=== PATIENT | female | born 1995 | race Two or more races ===

== ENCOUNTER 2017-01-16 21:01 | Emergency (ER) | payer BC ==
--- NOTE | 2017-01-16 22:09 | RAD ---
Indication: Chest pain. 2 views of the chest demonstrates no mediastinal shift. Heart is of normal size and configuration. Lung reilly are clear. IMPRESSION: No active cardiopulmonary disease is noted.
[2017-01-16 22:33] LABS: Hematocrit 37 % (35-47); Hemoglobin 12.5 g/dl (12.0-16.0); Mean Corpuscular HGB Conc 34 g/dl (31-36); Mean Corpuscular Hemoglobin 31 pg (27-31); Mean Corpuscular Volume 89 fL (80-97); Mean Platelet Volume 7 um3 (7.4-10.4); Red Blood Count 4.08 10^6/ul (4.0-5.4); Red Cell Distribution Width 13 % (10.5-15); White Blood Count 5.3 10^3/ul (3.5-10.8)
[2017-01-16 23:03] LABS: ALT 9 U/L (7-52); AST 13 U/L (13-39); Albumin 4.5 g/dL (3.2-5.2); Alkaline Phosphatase 23 U/L (34-104); Anion Gap 7 mmol/L (2-11); BUN/Creatinine Ratio 18.2 (8-20); Blood Urea Nitrogen 12 mg/dL (6-24); CO2 Carbon Dioxide 27 mmol/L (22-32); Calcium 9.8 mg/dL (8.6-10.3); Chloride 102 mmol/L (101-111); EGFR African American 145.4 (>60); EGFR Non-African American 113.1 (>60); Globulin 3.3 g/dL (2-4); Glucose 100 mg/dL (70-100); Potassium 3.5 mmol/L (3.5-5.0); Sodium 136 mmol/L (133-145); Total Protein 7.8 g/dL (6.4-8.9)
[2017-01-16] MEDS ORDERED: NS 0.9% 1000 ML* 1,000 ML IV ONE (23:32)
[2017-01-17] MEDS ORDERED: Iohexol 350* (CONTRAST) 500 ML MDV IV ONE (00:52)
[2017-01-17] MEDS ORDERED: Ibuprofen TAB* 600 MG PO ONE (02:10)
[2017-01-17 03:43] VITALS: BP 90/50
--- NOTE | 2017-01-17 04:56 | ED ---
Khurram Mendoza Rebecca, scribed for JanethingridAvinash on 01/16/17 at 2328 . HPI Chest Pain - HPI Summary HPI Summary: Pt is a 21 y/o F who presents to ED referred from [facility] c/o CP. Pain began this morning at 0630 and is located in the midsternal region. Pain is currently not present, ranked 0/10. Sx aggravated by standing up and deep breaths, alleviated by nothing. Denies SOB. Pt is on oral contraceptives (ocella ). - History of Current Complaint Chief Complaint: EDChestPainROMI Time Seen by Provider: 01/16/17 23:14 Hx Obtained From: Patient Onset/Duration: Started Hours Ago, Resolved Time of Onset: 06:30 Current Severity: None Pain Intensity: 0 Pain Scale Used: 0-10 Numeric Chest Pain Location: Mid Sternal Aggravating Factor(s): Deep Breaths, Other: - Standing Alleviating Factor(s): Nothing Associated Signs and Symptoms: Positive: Negative. Negative: Shortness of Breath - Allergy/Home Medications Allergies/Adverse Reactions: Allergies Allergy/AdvReac Type Severity Reaction Status Date / Time No Known Allergies Allergy Verified 01/16/17 21:16 PMH/Surg Hx/FS Hx/Imm Hx Endocrine/Hematology History: Reports: Hx Thyroid Disease - Hypothyroid Cardiovascular History: Denies: Hx Coronary Artery Disease, Hx Hypertension Infectious Disease History: No Infectious Disease History: Denies: Traveled Outside the [place] in Last 30 Days - Family History Known Family History: Negative: Cardiac Disease, Hypertension, Diabetes - Social History Occupation: Student Alcohol Use: None Substance Use Type: Reports: Marijuana Smoking Status (MU): Never Smoked Tobacco Review of Systems Negative: Fever Positive: Chest Pain Negative: Shortness Of Breath All Other Systems Reviewed And Are Negative: Yes Physical Exam - Summary Physical Exam Summary: Appearance: Well appearing, no pain distress Skin: warm, dry, reflects adequate perfusion Head/face: normal Eyes: EOMI, RADHA ENT: normal Neck: supple, nontender Respiratory: CTA, breath sounds present Cardiovascular: RRR, pulses symmetrical Abdomen: nontender, soft Bowel: present Musculoskeletal: normal, strength/ROM intact Neuro: normal, sensory motor intact, A&Ox3 Triage Information Reviewed: Yes Vital Signs On Initial Exam: Initial Vitals Temp Pulse Resp BP Pulse Ox 97.8 F 80 14 111/72 98 08/30/17 21:18 01/16/17 21:18 01/16/17 21:18 01/16/17 21:18 01/16/17 21:18 Vital Signs Reviewed: Yes Diagnostics - Vital Signs Vital Signs Temp Pulse Resp BP Pulse Ox 01/16/17 23:00 98.7 F 70 16 100/58 100 01/16/17 21:18 97.8 F 80 14 111/72 98 - Laboratory Lab Results: Lab Results 01/16/17 01/16/17 01/16/17 Range/Units 22:07 22:07 22:07 WBC 5.3 (3.5-10.8) 10^3/ul RBC 4.08 (4.0-5.4) 10^6/ul Hgb 12.5 (12.0-16.0) g/dl Hct 37 (35-47) % MCV 89 (80-97) fL MCH 31 (27-31) pg MCHC 34 (31-36) g/dl RDW 13 (10.5-15) % Plt Count 270 (150-450) 10^3/ul MPV 7 L (7.4-10.4) um3 Neut % (Auto) 46.8 (38-83) % Lymph % (Auto) 43.4 (25-47) % [place] % (Auto) 8.0 (1-9) % Eos % (Auto) 1.3 (0-6) % Baso % (Auto) 0.5 (0-2) % Absolute Neuts (auto) 2.5 (1.5-7.7) 10^3/ul Absolute Lymphs (auto) 2.3 (1.0-4.8) 10^3/ul Absolute Monos (auto) 0.4 (0-0.8) 10^3/ul Absolute Eos (auto) 0.1 (0-0.6) 10^3/ul Absolute Basos (auto) 0 (0-0.2) 10^3/ul Absolute Nucleated RBC 0 10^3/ul Nucleated RBC % 0.1 INR (Anticoag Therapy) 0.92 (0.89-1.11) APTT 29.5 (26.0-36.3) seconds D-Dimer, Quantitative < 200 (Less Than 230) ng/mL Sodium (133-145) mmol/L Potassium (3.5-5.0) mmol/L Chloride (101-111) mmol/L Carbon Dioxide (22-32) mmol/L Anion Gap (2-11) mmol/L BUN (6-24) mg/dL Creatinine (0.51-0.95) mg/dL Est GFR ( Amer) (>60) Est GFR (Non-Af Amer) (>60) BUN/Creatinine Ratio (8-20) Glucose (70-100) mg/dL Calcium (8.6-10.3) mg/dL Total Bilirubin (0.2-1.0) mg/dL AST (13-39) U/L ALT (7-52) U/L Alkaline Phosphatase (34-104) U/L Troponin I (<0.04) ng/mL B-Natriuretic Peptide 10 ( - 100) pg/mL Total Protein (6.4-8.9) g/dL Albumin (3.2-5.2) g/dL Globulin (2-4) g/dL Albumin/Globulin Ratio (1-3) Beta HCG, Quant mIU/mL 01/16/ Range/Units 22:07 WBC (3.5-10.8) 10^3/ul RBC (4.0-5.4) 10^6/ul Hgb (12.0-16.0) g/dl Hct (35-47) % MCV (80-97) fL MCH (27-31) pg MCHC (31-36) g/dl RDW (10.5-15) % Plt Count (150-450) 10^3/ul MPV (7.4-10.4) um3 Neut % (Auto) (38-83) % Lymph % (Auto) (25-47) % [place] % (Auto) (1-9) % Eos % (Auto) (0-6) % Baso % (Auto) (0-2) % Absolute Neuts (auto) (1.5-7.7) 10^3/ul Absolute Lymphs (auto) (1.0-4.8) 10^3/ul Absolute Monos (auto) (0-0.8) 10^3/ul Absolute Eos (auto) (0-0.6) 10^3/ul Absolute Basos (auto) (0-0.2) 10^3/ul Absolute Nucleated RBC 10^3/ul Nucleated RBC % INR (Anticoag Therapy) (0.89-1.11) APTT (26.0-36.3) seconds D-Dimer, Quantitative (Less Than 230) ng/mL Sodium 136 (133-145) mmol/L Potassium 3.5 (3.5-5.0) mmol/L Chloride 102 (101-111) mmol/L Carbon Dioxide 27 (22-32) mmol/L Anion Gap 7 (2-11) mmol/L BUN 12 (6-24) mg/dL Creatinine 0.66 (0.51-0.95) mg/dL Est GFR ( Amer) 145.4 (>60) Est GFR (Non-Af Amer) 113.1 (>60) BUN/Creatinine Ratio 18.2 (8-20) Glucose 100 (70-100) mg/dL Calcium 9.8 (8.6-10.3) mg/dL Total Bilirubin 0.60 (0.2-1.0) mg/dL AST 13 (13-39) U/L ALT 9 (7-52) U/L Alkaline Phosphatase 23 L (34-104) U/L Troponin I 0.00 (<0.04) ng/mL B-Natriuretic Peptide ( - 100) pg/mL Total Protein 7.8 (6.4-8.9) g/dL Albumin 4.5 (3.2-5.2) g/dL Globulin 3.3 (2-4) g/dL Albumin/Globulin Ratio 1.4 (1-3) Beta HCG, Quant < 0.60 mIU/mL Result Diagrams: 01/16/17 22:07 01/16/17 22:07 Lab Statement: Any lab studies that have been ordered have been reviewed, and results considered in the medical decision making process. - Radiology CXR Xray Interpretation: No Acute Changes - No active cardiopulmonary disease is noted. ED physician reviewed radiology report and agrees. Radiology Interpretation Completed By: Radiologist - CT CTA Chest CT Interpretation: No Acute Changes - No evidence of pathology. ED physician reviewed this radiology report and agrees. CT Interpretation Completed By: Radiologist - EKG 2111 Cardiac Rate: NL - 74 bpm EKG Rhythm: Sinus Rhythm ST Segment: Non-Specific - Non-specific T changes Re-Evaluation - Re-Evaluation First Eval Re-Evaluation Time: 02:10 Comment: Discussed results with the pt. Chest Pain Course/Dx - Course Assessment/Plan: Pt is a 21 y/o F who presents to ED referred from [facility] c/o CP. Pain began this morning at 0630 and is located in the midsternal region. Pain is currently not present, ranked 0/10. Sx aggravated by standing up and deep breaths, alleviated by nothing. Denies SOB. Pt is on oral contraceptives (ocella). CXR and CTA Chest reveal no acute findings. EKG is sinus rhythm with non-specific T changes. Blood work was done. Troponin of 0.00 , D-Dimer <200. In the ED course, pt received Motrin and fluids. She will be D/ C to home with Dx of chest pain, Rx for motrin and a follow up with her PCP. She understands and agrees. - Diagnoses Provider Diagnoses: Chest pain Discharge - Discharge Plan Condition: Stable Disposition: HOME Prescriptions: Ibuprofen TAB* [Motrin TAB* 600 MG] 600 mg PO Q8H PRN #20 tab MDD 3 PRN Reason: Pain Patient Education Materials: Chest Pain (ED) Referrals: [facility] [Primary Care Provider] - 3 Days The documentation as recorded by the Khurram gonzalez Rebecca accurately reflects the service I personally performed and the decisions made by , Avinash Velarde.
--- NOTE | 2017-01-17 08:12 | RAD ---
INDICATION: Chest pain. COMPARISON: Comparison is made with a prior chest x-ray study from January 16, 2017. TECHNIQUE: A CT angiogram of the chest was performed with intravenous following intravenous injection of 59 ml of Omnipaque 350 nonionic contrast. Contiguous axial sections were obtained from the lung apices through the lung bases. Images were reconstructed in the coronal and sagittal planes. FINDINGS: There is relatively homogeneous opacification of the pulmonary arteries. No intraluminal filling defect or pulmonary embolism is seen. The heart is within normal limits in size. No pericardial effusion is present. The thoracic aorta is normal in caliber and demonstrates homogeneous contrast opacification. No significant enlarged mediastinal or hilar lymph nodes are seen. The lungs are clear. No pleural effusion is seen. There is a mild dorsal scoliosis convex toward the left in the upper dorsal region and toward the right in the lower dorsal region. No significant focal osseous abnormality is seen. IMPRESSION: NO EVIDENCE FOR PULMONARY EMBOLISM.
== END 2017-01-17 03:15 | disposition home or self-care (01) ==
LOC: ED 21:01
DX: R07.9 Chest pain, unspecified (principal)
CPT/HCPCS: 36415; 71020; 71275; 80053; 83880; 84484; 84702; 85025; 85379; 85610; 85730; 93005; 99282; A9270-GY; Q9967

== ENCOUNTER 2017-03-08 23:23 | Emergency (ER) | payer BC ==
[2017-03-09] MEDS ORDERED: Ondansetron ODT TAB* 4 MG PO ONE (00:43)
[2017-03-09] MEDS ORDERED: Acetaminophen TAB* 325 MG PO ONE (00:43)
--- NOTE | 2017-03-09 01:02 | ED ---
GI/ HPI - HPI Summary HPI Summary: 21F presents with flank pain, nausea, dysuria and frequency for 2 days. She states dysuria started 6 days ago. She also had food poisoning symptoms that seemed to resolve. she was going to follow up with [facility] about the uti symptoms but it got worst tonight. She denies any vomiting or fever. No history of kidney stones or pyelo. She is on control. She has not taken anything for pain. She has pelvic pain with symptoms. She denies any hematuria. She denies any diarrhea or constipation. She denies any previous abdominal surgeries. The flank pain is located on left side. She denies any injury. She denies any vaginal discharge or history of STDs. - History of Current Complaint Chief Complaint: EDUrogenitalProblems Time Seen by Provider: 03/09/17 00:22 Stated Complaint: POSS KIDNEY INFECTION, SENT BY [facility] Pain Intensity: 7 - Allergy/Home Medications Allergies/Adverse Reactions: Allergies Allergy/AdvReac Type Severity Reaction Status Date / Time No Known Allergies Allergy Verified 03/08/17 23:27 PMH/Surg Hx/FS Hx/Imm Hx Endocrine/Hematology History: Reports: Hx Thyroid Disease - Hypothyroid Denies: Hx Diabetes Cardiovascular History: Denies: Hx Coronary Artery Disease, Hx Hypertension History: Denies: Hx Renal Disease Infectious Disease History: No Infectious Disease History: Denies: Traveled Outside the in Last 30 Days - Family History Known Family History: Negative: Cardiac Disease, Hypertension, Diabetes - Social History Alcohol Use: None Substance Use Type: Reports: Marijuana Smoking Status (MU): Never Smoked Tobacco Review of Systems Negative: Fever Negative: Chest Pain Negative: Shortness Of Breath Positive: Nausea. Negative: Vomiting Positive: dysuria, frequency All Other Systems Reviewed And Are Negative: Yes Physical Exam Triage Information Reviewed: Yes Vital Signs On Initial Exam: Initial Vitals Temp Pulse Resp BP Pulse Ox 98.0 F 87 18 112/79 96 03/08/17 23:24 03/08/17 23:24 03/08/17 23:24 03/08/17 23:24 03/08/17 23:24 Vital Signs Reviewed: Yes Appearance: Positive: Well-Appearing Skin: Positive: Warm, Dry Head/Face: Positive: Normal Head/Face Inspection Eyes: Positive: Normal, EOMI, RADHA, Conjunctiva Clear ENT: Positive: Normal ENT inspection, Pharynx normal, TMs normal Respiratory/Lung Sounds: Positive: Clear to Auscultation, Breath Sounds Present Cardiovascular: Positive: Normal, RRR Abdomen Description: Positive: Soft, CVA Tenderness (R), Other: - tenderness mild suprapubic region, Bowel Sounds: Positive: Present Neurological: Positive: Normal Psychiatric: Positive: Normal Diagnostics - Vital Signs Vital Signs Temp Pulse Resp BP Pulse Ox 03/08/17 23:24 98.0 F 87 18 112/79 96 - Laboratory Result Diagrams: 03/09/17 00:51 03/09/17 00:51 Lab Statement: Any lab studies that have been ordered have been reviewed, and results considered in the medical decision making process. Re-Evaluation - Re-Evaluation First Eval Re-Evaluation Time: 01:49 Change: Improved Comment: sleeping in room, feels much better after zofran and acetaminophen GIGU Course/Dx - Course Course Of Treatment: 21F presents with flank pain, nausea, dysuria and frequency for 2 days. She states dysuria started 6 days ago. She also had food poisoning symptoms that seemed to resolve. she was going to follow up with [facility] about the uti symptoms but it got worst tonight. She denies any vomiting or fever. No history of kidney stones or pyelo. She is on control. She has not taken anything for pain. She has pelvic pain with symptoms. She denies any hematuria. She denies any diarrhea or constipation. She denies any previous abdominal surgeries. The flank pain is located on left side. She denies any injury. She denies any vaginal discharge or chance of STDs. on exam tenderness suprapubic area. pos CVA tenderness right. wbc normal. kidney function normal. urine shows leuko, wbc. will treat with bactrim for pyelo. patient understands and agrees with plan. - Diagnoses Differential Diagnoses - Female: Pyelonephritis, Urinary Tract Infection, Ureteral Calculi Provider Diagnoses: Pyelonephritis Discharge - Discharge Plan Condition: Good Disposition: HOME Prescriptions: Ondansetron ODT TAB* [Zofran 4 MG Odt TAB*] 4 mg PO Q6H PRN #20 tab.odt PRN Reason: Nausea Sulfamethox/Trimethoprim DS* [Bactrim DS 800/160 TAB*] 1 tab PO BID #27 tab Patient Education Materials: Kidney Infection (ED) Referrals: [facility] [Primary Care Provider] - Additional Instructions: Take antibiotic twice a day for 14 days, starting tomorrow Use Zofran every 6 hours for nausea as needed Drink plenty of water Use alternative forms of control Take Tylenol or ibuprofen every 6 hours as needed for pain and fever Return to ED if develop severe vomiting, or any new or worsening symptoms
[2017-03-09 01:03] LABS: Hematocrit 37 % (35-47); Hemoglobin 12.7 g/dl (12.0-16.0); Mean Corpuscular HGB Conc 34 g/dl (31-36); Mean Corpuscular Hemoglobin 30 pg (27-31); Mean Corpuscular Volume 88 fL (80-97); Mean Platelet Volume 7 um3 (7.4-10.4); Red Blood Count 4.24 10^6/ul (4.0-5.4); Red Cell Distribution Width 12 % (10.5-15); White Blood Count 7.3 10^3/ul (3.5-10.8)
[2017-03-09 01:20] LABS: Albumin 3.8 g/dL (3.2-5.2); BUN/Creatinine Ratio 16.1 (8-20); Calcium 9.1 mg/dL (8.6-10.3); EGFR African American 156.3 (>60); EGFR Non-African American 121.5 (>60); Potassium 3.6 mmol/L (3.5-5.0); Total Bilirubin 0.3 mg/dL (0.2-1.0); Total Protein 6.8 g/dL (6.4-8.9)
[2017-03-09 01:36] LABS: Urine Bacteria Absent (Absent); Urine Bilirubin Negative (Negative); Urine Glucose Negative (Negative); Urine Nitrite Negative (Negative)
[2017-03-09 01:44] LABS: Manual Entry Verification ABI0007; UR Preg Internal Control QC Line Present
[2017-03-09] MEDS ORDERED: Sulfamethox/Trimethoprim DS 800/160* TAB PO ONE (01:45)
[2017-03-09 02:04] VITALS: BP 101/61
--- NOTE | 2017-03-11 09:03 | PN ---
Progress Note - Progress Note Date of Service: 03/09/17 Note: >100,000 of staph sapro grew on urine preliminary culture results. was treated and discharged on bactrim. no further changes required at this time. will wait for final culture sensitivity.
== END 2017-03-09 02:04 | disposition home or self-care (01) ==
LOC: ED 23:23
DX: N12 Tubulo-interstitial nephritis, not specified as acute or chronic (principal); R10.84 Generalized abdominal pain; R11.0 Nausea; R30.0 Dysuria
CPT/HCPCS: 36415; 80053; 81003; 81015; 81025; 85025; 87077; 87086; 99283; A9270-GY